=== PATIENT | female | born 1945 | race Caucasian/White ===

== ENCOUNTER 2018-09-12 19:13 | Outpatient (REF) | payer MEDICARE, SELFPAY | END 2018-09-12 19:33 | LOC: LBN 19:13 | PROVIDERS: PCP Internal Medicine Adolescent Medicine; Visit Provider Family Medicine | DX: R82.90 Unspecified abnormal findings in urine (principal); R50.9 Fever, unspecified | CPT/HCPCS: 87077; 87086; 87186 ==

== ENCOUNTER 2018-09-17 00:50 | Outpatient (CLI) | payer MEDICARE, SELFPAY ==
--- NOTE | 2018-09-17 09:45 | DI.US_ITS ---
SYMPTOM/DIAGNOSIS: PYELO, ? SOLITARY KIDNEY, UTI N390, Q60.0 RENAL ULTRASOUND: Routine examination. The left kidney measures 11.2 cm long The right kidney measures 11.1 cm long. No renal mass, calculus or obstruction is seen. There is normal and symmetric blood flow to the kidneys. The pre-void urinary bladder volume is 244 cc. No intraluminal masses are seen. The bladder wall appears intact. Both ureteral jets were visualized. The post void urinary bladder volume was less than 10 cc. IMPRESSION: Normal renal ultrasound.
== END 2018-09-17 01:10 ==
PROVIDERS: PCP Internal Medicine Adolescent Medicine; Visit Provider Family Medicine
DX: N39.0 Urinary tract infection, site not specified (principal); N11.1 Chronic obstructive pyelonephritis
CPT/HCPCS: 76770

== ENCOUNTER 2019-04-03 11:41 | Outpatient (CLI) | payer MEDICARE, SELFPAY ==
--- NOTE | 2019-04-03 11:32 | DI.RAD_ITS ---
SYMPTOM/DIAGNOSIS: F/U RT TENA, ACUTE LT HIP PAIN, ? DJD LT HIP AP PELVIS: The patient is status post right TENA. The prosthesis is in good position. Surrounding bone intact. There may be mild narrowing of the left hip joint. There is minimal periarticular hypertrophic spurring. These findings would be consistent with mild DJD.
== END 2019-04-03 12:01 ==
PROVIDERS: PCP Internal Medicine Adolescent Medicine; Referring Provider Internal Medicine Adolescent Medicine; Visit Provider Orthopaedic Surgery
DX: M25.552 Pain in left hip (principal); Z96.641 Presence of right artificial hip joint; M16.12 Unilateral primary osteoarthritis, left hip; Z47.1 Aftercare following joint replacement surgery
CPT/HCPCS: 99211; 99213; 72170

== ENCOUNTER → 2019-09-29 10:27 | Outpatient (BNVA) | payer MEDICARE, SELFPAY | PROVIDERS: PCP Internal Medicine Adolescent Medicine; Referring Provider Internal Medicine Adolescent Medicine; Visit Provider Student in an Organized Health Care Education/Training Program | DX: M19.012 Primary osteoarthritis, left shoulder (principal); M75.122 Complete rotator cuff tear or rupture of left shoulder, not specified as traumatic; M16.12 Unilateral primary osteoarthritis, left hip | CPT/HCPCS: 99214 ==

== ENCOUNTER 2020-03-05 03:19 | Outpatient (CLI) | payer MEDICARE, SELFPAY ==
[2020-03-05 12:07] LABS: HCT 37.5 % (36.0-46.0); HGB 12.1 g/dL (12.0-15.5); Mean Corp. HGB Concentration 32.3 g/dL (32.0-36.0); Mean Corpuscular Hemoglobin 29.8 pg (27.0-33.0); Mean Corpuscular Volume 92.4 fL (80-95); Mean Platelet Volume 9.7 fL (8.0-11.0); Platelet Count 393 x1000/uL (130-400); RBC 4.06 m/cumm (4.00-5.20); RBC Distribution Width 13.1 % (11.7-14.6); White Blood Cell Count 7.68 k/cumm (4.4-10.8)
[2020-03-05 13:08] LABS: Anion Gap 7.3 mmol/L (3-11); BUN 25 mg/dL (7-18); CO2 28.7 mmol/L (21.0-32.0); CREATININE 1.03 mg/dL (0.55-1.02); Calcium 9.1 mg/dL (8.5-10.1); Chloride 102 mmol/L (98-107); Glucose 134 mg/dL (74-106); Potassium 4.6 mmol/L (3.5-5.1); Sodium 138 mmol/L (136-145)
== END 2020-03-05 03:39 ==
PROVIDERS: PCP Internal Medicine Adolescent Medicine; Visit Provider Student in an Organized Health Care Education/Training Program
DX: M25.552 Pain in left hip (principal); M16.12 Unilateral primary osteoarthritis, left hip; Z01.818 Encounter for other preprocedural examination; Z01.812 Encounter for preprocedural laboratory examination
CPT/HCPCS: 36415; 80048; 85027; 86850; 86900; 86901

== ENCOUNTER 2020-03-05 09:26 | Outpatient (CLI) | payer MEDICARE, SELFPAY ==
[2020-03-06 14:12] LABS: COVID-19 RT-PCR UVMMC Result Negative (Negative)
== END 2020-03-05 09:46 ==
PROVIDERS: PCP Internal Medicine Adolescent Medicine; Visit Provider Student in an Organized Health Care Education/Training Program
DX: Z11.59 Encounter for screening for other viral diseases (principal)
CPT/HCPCS: U0003

== ENCOUNTER 2020-03-05 11:44 | Outpatient (CLI) | payer MEDICARE, SELFPAY ==
--- NOTE | 2020-03-05 08:00 | DI.RAD_ITS ---
EXAM: XR PELVIS AP CLINICAL HISTORY: preop. TECHNIQUE: 2D digital imaging was performed. COMPARISON: CR XR pelvis AP from 04/03/2019 FINDINGS: BONES: No acute fracture is present. No bony destructive lesion is seen. JOINTS: No dislocation present. Stable degenerative changes are seen in the left hip. Stable postsur gical changes of a right total hip replacement are present. SOFT TISSUE: Normal. IMPRESSION: No acute abnormality. DATA REPOSITORY: RADIATION DOSE DELIVERED:
--- NOTE | 2020-03-05 08:15 | DI.RAD_ITS ---
EXAM: XR KNEE LT 4V AP,LAT,BERNARD,PAT CLINICAL HISTORY: left knee pain. TECHNIQUE: 2D digital imaging was performed. COMPARISON: No exams were available for comparison FINDINGS: BONES: No acute fracture is present. No bony destructive lesion is seen. Periarticular spurring is s een in all 3 joint compartments. JOINTS: The knee is normally aligned. Small joint effusion is present. Joint space narrowing is seen involving all 3 joint compartments. There is chondrocalcinosis in the femoral tibial joint. SOFT TISSUE: Normal. IMPRESSION: Moderate degenerative changes of the left knee. DATA REPOSITORY: RADIATION DOSE DELIVERED:
== END 2020-03-05 12:04 ==
PROVIDERS: PCP Internal Medicine Adolescent Medicine; Referring Provider Internal Medicine Adolescent Medicine; Visit Provider Physician Assistant Surgical
DX: M25.562 Pain in left knee (principal); M25.462 Effusion, left knee; M17.12 Unilateral primary osteoarthritis, left knee; M16.12 Unilateral primary osteoarthritis, left hip; Z96.641 Presence of right artificial hip joint; Z01.818 Encounter for other preprocedural examination
CPT/HCPCS: 36415; 80048; 85027; 86850; 86900; 86901; U0003; 72170; 73564

== ENCOUNTER 2020-03-09 06:02 | Observation (INO) | payer MEDICARE, SELFPAY ==
[2020-03-09] VITALS (14 sets, daily range): BP systolic 77–172; BP diastolic 47–84; PULSE 74–95; RESP 13–20; TEMP 36.4–36.7; O2SAT 93–99
--- NOTE | 2020-03-09 06:45 | DI.RAD_ITS ---
EXAM: XR HIP LT IN OR CLINICAL HISTORY: Primary osteoarthritis of left hip. TECHNIQUE: 2D and realtime digital imaging was performed. COMPARISON: CR XR PELVIS AP from 03/05/2020 FINDINGS: Fluoroscopy was provided in the OR for Dr. Braun. Hard copy images show placement of a left hip prosthesis. The alignment appears satisfactory. A previously existing right hip prosthesis is also n oted. FLUORO TIME: 37.2 seconds RADIATION DOSE DELIVERED:
[2020-03-09] MEDS: Acetaminophen 500 MG TAB 1000 MG PO ×2 (06:57→13:07)
[2020-03-09] MEDS: Celecoxib 200 MG CAP 400 MG PO (06:57)
[2020-03-09] MEDS: Lactated Ringers 1,000 ML 80 ML IV ×2 (07:01→10:16)
[2020-03-09] MEDS: ceFAZolin 2 GM/50 ML BAG IVPB (07:40)
[2020-03-09] MEDS: Bupivacaine 0.25% Pres-Free 30 ML VIAL (08:49)
[2020-03-09] MEDS: Ketorolac 30 MG/ML VIAL (08:49)
--- NOTE | 2020-03-09 09:40 | ROE_ITS ---
Date of service: 03/09/20 Time of Service: 09:40 Operative Note Operative Note DATE OF PROCEDURE: 03/09/20 PRE-OP DIAGNOSIS: Left Hip Osteoarthritis POST-OP DIAGNOSIS: same PROCEDURE: Left Anterior Total Hip Arthroplasty SURGEON: Nba Braun DEATH CLAIM CLERK: Jayla Aggarwal ANESTHESIA: spinal ESTIMATED BLOOD LOSS: 100 PATHOLOGY: none sent TOURNIQUET TIME: 0 COMPLICATIONS: None Patient was transported to: PACU Patient's condition: stable Implants: 1. Depuy [place] Acetabular Component, 52 mm 2. Depuy Acetabular Liner, 52 x 36 mm 3. Depuy [place]ail coxa vara femoral Stem, Size 12 4. Depuy [Altrx Ceramic Femoral Head], Size 36+5 mm Indications: I have seen Madina in clinic for symptoms of hip arthritis, confirmed with radiographic findings. Madina has exhausted nonoperative methods and was having significant limitations in daily function and desired better function and less pain. I discussed the technical details of a hip replacement. I explained the risks of the procedure to include, but not limited to, bleeding, infection, pain, stiffness, fracture, damage to nerves and vessels, damage to muscles and tendons, loosening, instability, leg length inequality, need for repeat procedure, blood clot and cardiopulmonary demise. Despite these risks, she elected to proceed. Findings: There was significant signs of arthritis throughout the hip. Large lateral neck osteophytes were encountered as well as loss of cartilage over the superior and medial femoral head. Procedure Description: Madina was greeted in the preoperative holding area where the correct side was identified and marked. The consent was reviewed with the patient and signed. The history and physical was updated. All questions were answered. She was taken back to the operating room. A spinal anesthestic was then administered. The patient was placed into the supine position on the operating room table. The patient was then positioned onto the ARCH table. Both feet were wrapped with [place] cotton wrap along with Coban. The feet were placed in specialized boots for the ARCH table, well seated within the boot and secured. SCDs were applied. The patient was then slid down onto a peroneal post and the nonoperative leg was secured in a leg ochoa attached to the table. The operative side was placed into the ARCH table attachment and bed height and positioning was secured. A preoperative AP pelvis was obtained to serve as a reference for determining leg lengths. Prophylactic antibiotics in the form of cefazolin were administered. 1g of Tranxemic Acid was given intravenously within 30 minutes of incision. The left leg was then prepped with Chloraprep and draped in a standard fashion. A second prep with Chloraprep was performed prior to placement of a shower-curtain type drape with Iodine impregnated skin protection. A timeout to confirm correct identity, side and site, procedure, allergies, anesthesia, and medical concerns was performed. An obliquely oriented incision was made starting lateral to the ASIS and running distal over the Tensor Fascia Trista (TFL) muscle belly toward the fibular head, approximately 10cm. The skin and soft tissue was dissected sharply, through Chicho?s fascia, and to the fascia of the TFL. With the fascia and superior border of the IT band identified, the fascia was incised with a new knife just above any perforators from the IT band. The TFL muscle belly was bluntly dissected away from the fascia and moved laterally. The fat between TFL and rectus was identified to ensure the dissection was not within the TFL. Blunt dissection created space between abductors and the capsule and retractor was placed over the lateral femoral neck. The fibers of the rectus femoris tendon were identified and these were freed from the anterior capsule. A second cobra retractor was placed around the medial femoral neck. The TFL was further retracted laterally to show the deep fascia. Careful dissection through this layer identified three main crossing vessels of the lateral femoral circumflex. These were cauterized in multiple locations and then cut without any noticeable bleeding. The TFL was further released bluntly from the deep fascia to expose anterior hip capsule and fat the Alfred orthopaedic retractor was then placed beneath the TFL and against sartorius and medial soft tissues to protect and retract the soft tissues. A T-capsulotomy was then performed starting at the superior lateral acetabulum and moving distally to the intertrochanteric ridge. These capsular flaps were tagged with a No. 1 Ethibond and elevated from within. The capsular flaps were released to the shoulder of the lateral neck and to the lesser trochanter to give excellent visualization of the proximal femur. A neck osteotomy was performed using an oscillating saw based on preoperative templates. This cut started in the shoulder and of the lateral neck and exited medially. The saw was at all times directed medially to avoid injury to the greater trochanter. 6cm of traction was applied to the leg and the osteotomy opened. The femoral head was removed with a corkscrew, making sure to protect the TFL on its exit. This was measured on the back table to determing the starting reamer size. Portions of the rectus obscuring visualization were minimally elevated off the superior acetabulum. An anterior retractor was placed over the anterior wall between capsule and labrum and attached to the Gripper retraction system. A posterior retractor was placed similarly. This provided excellent visualization. The contents of the cotyloid fossa were removed with electrocautery and the labrum was removed with a knife. There was significant chondromalacia of the superior acetabulum. The femoral head had complete loss of cartilage over the medial aspect and part of the superior aspect of the femoral head. Acetabular reaming began with a 48 mm reamer. This first reaming was directed anterior to posterior and medial to get down to the true floor. This was inspected and reamed until the true floor was reached. The anterior retractor was then released and entry and exit was provided by traction on the capsular flaps. I then reamed sequentially up to a 52 mm reamer where good fit was obtained. The larger reamers were oriented based on anatomical reference of the anterior and lateral lindsey to ensure proper abduction and anteversion. Positioning and size was confirmed with the fluoroscopy. A 52 mm Depuy [place] acetabular component was selected. The deep tissues were irrigated. The acetabular component was then impacted in a position of about 40-45 degrees of abduction and 15-20 degrees of anteversion, using the patient?s anatomy as the ultimate landmark. Fluoroscopy was used to confirm this. There was excellent forest fire prevention specialist of the acetabular component and the inserting handle was removed. The acetabular liner, Depuy 52 x 36 mm polyethylene liner, was inserted and lined up with the tines of the acetabular component. There was no soft tissue interposition. The liner was then impacted into position and confirmed to be well-seated. A portion of the lesley-articular cocktail was then injected around the acetabulum into the capsule and periosteum. This cocktail consisted of 50cc of 0.25% Bupivicaine and 20cc of Exparel, expanded to a total of 120cc. Traction was released from the femur. The leg was rotated to 120 degrees. Any remaining medial capsule was released until the lesser trochanter was easily palpable. A Bolton retractor was placed medially. The lateral capsule was f urther released into the shoulder to allow access to the greater trochanter. A [place] retractor was placed over the greater trochanter which allowed the trochanter to flip in front of the capsule for excellent exposure. The leg was brought down into maximal extension and 20 degrees of adduction while ensuring there was no impingement on the acetabulum. Any remnant capsule within the trochanter was released. Piriformis and obturator externis were identified and protected. There was excellent access to the proximal femur. The lateral neck remnant was removed with a rongeur. A blunt canal probe was used to identify the canal and trajectory for later broaching. A box osteotome initiated the broach course. A small curved rasp and a curved curette were used to work laterally. Broaching then began with a size 8 Corail broach. This was inserted manually around the trochanter and into the canal before mallet blows. The broach was seated to a few millimeters below the cut level based on the neck cut and the preoperative template. Sequential broaching was continued with the Nextdoorse pneumatic broaching device until a tight fit was obtained with good rotational control of the femur. A trial standard neck was inserted along with a +5 trial head. The leg was brought out of extension and adduction and then reduced with traction and internal rotation. The leg was stable anteriorly in a position of 30 degrees of extension and 90 degrees of external rotation. Fluoroscopy was used to ensure there was no fracture and the stem was seated well. Leg lengths were checked with an AP pelvis and pelvic reference points. IPNetVoice navigation system was used to confirm appropriate positioning and leg length and offset. Compared to the template my neck cut was still slightly high. Additionally, I was lacking at least 3 to 4 mm of offset. Therefore, based on the joint point navigation system and observations, I switched to a coxa vara stem to lose some leg length but gain some offset. Once content with the desired offset and leg lengths, the leg was brought back into extension, external rotation and adduction. The periosteum and surrounding tissue was injected with remaining portion of the lesley-articular cocktail. The proximal femur was irrigated as well as the deep tissues. The [place] Cor[place] coxa vara stem, size 12, was then manually inserted into the proximal femur making sure to control rotation. It was then malleted into position with light blows, giving breaks to allow bone expansion and decrease risk of fracture. The selected Depuy Altrx Ceramic Head, size 36+5mm, was then placed onto the clean and dry trunnion and secured with impaction onto the tapered fit. The leg was brought back out of extension and adduction and reduced with traction and internal rotation. Stability was confirmed with no shuck at 90 degrees of external rotation and 30 degrees of extension. No impingement through range of motion arc. Final x-ray images were obtained with fluoroscopy to confirm adequate positioning and no intraoperative fracture. The deep tissues were thoroughly irrigated with Irrisept chlorhexadine solution. The second dose of TXA 1g was administered intravenously. The capsule was then reapproximated with the previously placed Ethibond sutures. The TFL fascia was finally closed with a No. 2 Stratafix, barbed suture. Deep tissues were then reapproximated with 0 Vicryl and a running 2-0 Vicryl. The skin was closed with a running 4-0 Monocryl in a subcuticular fashion. This was reinforced with skin glue. A Mepilex silver dressing was applied. At the end of the case, all counts were correct. Madina was transferred to the hospital bed without difficulty and suffering no apparent complication. She has a good prognosis. Physical therapy will start today and without restrictions, weight-bearing as tolerated. Aspirin 81mg BID will be used for DVT prophylaxis.
[2020-03-09] MEDS: oxyCODONE 5 MG TAB PO (10:02)
--- NOTE | 2020-03-09 10:15 | DSE_ITS ---
Date of service: 03/09/20 Time of Service: 11:49 DS: Diagnosis Discharge Diagnosis (1) Primary osteoarthritis of left hip: Status: Acute Discharge Plan Disposition Patient Disposition: HOME Condition: Good Discharge Details Reason For Visit: (L) DJD HIP Admit Date/Time: 03/09/20 06:02 Admit Provider: Nba Braun Attending Provider: Nba Braun Primary Care Provider: Adela Carbajal Hospital Course Hospital Course: Patient was admitted to the medical/surgical floor following the procedure. The surgery was tolerated well without any notable medical, surgical, or anesthetic complications. Mobilization began postoperatively. After surgery she was voiding spontaneously. Vitals were stable. Physical therapy worked with the patient and was cleared for discharge home. No acute medical issues. Pain was controlled on oral regimen. Home Meds and New Rx's Prescriptions: New celecoxib 200 mg capsule 200 mg PO BID PRN (Reason: pain) Qty: 60 RF: 1 aspirin 81 mg tablet,delayed release (DR/EC) 81 mg PO BID Qty: 60 RF: 0 acetaminophen 500 mg tablet 1,000 mg PO Q8H PRN (Reason: pain) Qty: 90 RF: 3 pantoprazole 40 mg tablet,delayed release (DR/EC) 40 mg PO DAILY Qty: 30 RF: 0 oxycodone 5 mg tablet 5 mg PO Q6H PRN PRNQty: 12 RF: 0 Continued omega 2-uyk-oyq-fish oil [Fish Oil] 1,000 mg (120 mg-180 mg) capsule 2 cap PO DAILY RF: 0 calcium carbonate 500 mg calcium (1,250 mg) tablet 500 mg PO DAILY RF: 0 lysine HCl 1,000 mg tablet 1,000 mg PO BID RF: 0 calcium cit mal-vit D2-mag ox 200-200-25 mg-unit-mg tablet PO RF: 0 coenzyme Q10 [Co Q-10] 200 mg capsule 200 mg PO DAILY RF: 0 turmeric root extract 1,053 mg tablet 1,076 mg PO DAILY RF: 0 Flovent HFA 110 mcg/actuation Hfa Aerosol Inhaler 1 puff INHALATION BID RF: 0 escitalopram oxalate [Lexapro] 20 mg Tablet 20 mg PO QHS RF: 0 bupropion HCl [Wellbutrin XL] 300 mg Tablet Extended Release 24 Hr 300 mg PO QHS RF: 0 bupropion HCl [Wellbutrin XL] 150 mg Tablet Extended Release 24 Hr 150 mg PO QHS RF: 0 [place] Cbd 10 drp PO HS RF: 0 [place] Hortencia tablet 1 tab PO PRN PRNRF: 0 Discontinued acetaminophen [Tylenol Extra Strength] 500 mg Tablet 500 mg PO QHS PRNRF: 0 ibuprofen 600 mg Tablet 600 mg PO QHS PRNRF: 0 Discharge Instructions Additional Instructions: Dr. Braun's Total Hip Discharge Instructions Activity: The most important activity is to walk. You should try to take short walks a few times a day. You have no restrictions on movement or positioning, but do not try to force what you do. You will find some stiffness and weakness with hip flexion (lifting your knee). Do not try to strengthen this too early, continue to practice walking and stairs and this will come. - Outpatient physical therapy can be helpful to help return you to a normal gait and improve your flexibility and strength. This can start around 2 weeks. For most patients, it?s not necessary. Usually this is determined at the time of discharge or at the first post-operative visit. - You should wear the MOIRA hose on both legs for 2 weeks. You may remove those at night. These prevent blood pooling and swelling. Dressing: Keep the surgical dressing in place for at least one week, although it may stay in place untill follow-up. It may get wet after 3 days but avoid soaking the dressing. If it gets wet, just lightly pat dry. Most people prefer to cover the dressing with some ClingWrap, Saran Wrap, to keep it dry. After the first week it may be removed if desired and then replaced with light gauze and tape or nothing. It is important to always keep some gauze or the dressing between skin folds, especially when you are sitting, so the incision is not folded over on itself at the belly fold. Medications: - You should take Tylenol and an anti-inflammatory Celebrex as your primary pain control medications - You have been prescribed a stronger pain medication Oxycodone for breakthrough pain, take as needed as prescribed. - You have also been prescribed a stomach acid reduction agent Pantoprozole to help reduce stomach acid and reflux. - You will be taking Aspirin 81mg twice a day for DVT prevention unless instructed otherwise. - If you have constipation you should take Colace or Miralax (both [id number]). It takes most people 3-4 days to have a bowel movement. Follow-up: 2 weeks. If you have any acute concerns or questions, please do not hesitate to contact the office at [phone]. You may contact Dr. Braun with any questions after hours through the hospital at [phone] or on his cell phone at [phone]. Referrals: Nba Braun MD [ [facility] STAFF PHYSICIAN] - Activity:: Activity as Tolerated Equipment/Supplies:: Walker Diet:: As Tolerated Discharge Orders Discharge Orders: Discharge Order (Routine); Ordered 03/09/20 Ordered By: Nba Braun DS: Summary Status at Discharge Functional status at discharge: uses cane/walker Overall status at discharge: patient is progressing back to baseline Mental Status: mental status grossly normal Speech and Movement: speech and movement normal Mood: congruent mood Affect: normal affect Exam Psych Mental Status: mental status grossly normal Speech and Movement: speech and movement normal Mood: congruent mood Affect: normal affect DS: Data Vitals/I&O Vitals and I&O: Vital Signs Temperature 36.4 C L 03/09/20 10:04 Pulse 77 03/09/20 10:04 Pulse Rhythm Regular 03/09/20 06:35 Respiratory Rate 19 03/09/20 10:04 Respiratory Effort 03/09/20 06:35 Respiratory Depth Normal 03/09/20 06:35 Respiratory Pattern Normal 03/09/20 06:35 Blood Pressure 172/77 H 03/09/20 10:04 Pulse Oximetry 99 03/09/20 10:04 Respiratory End-tidal CO2 38 03/09/20 10:04 Oxygen Delivery Method Room Air 03/09/20 10:04 Oxygen Flow Rate 0 03/09/20 10:04 Pain Level 7 03/09/20 10:04 Intake & Output 03/08/20 03/08/20 03/09/20 11:59 23:59 11:59 Intake Total 1400 / 1400 Output Total 100 / 100 Balance 1300 / 1300 Weight 67.4 kg Intake: IV 970 / 970 Oral 430 / 430 Output: Estimated Blood Loss 100 / 100 Other: Emesis Description None [facility] Medical History Depression (Chronic) History of wrist fracture (Acute) L wrist, hardware removed Surgical History History of arthroscopic knee surgery (Chronic) L Knee History of bowel resection (Acute) History of cataract surgery (Chronic) History of colonoscopy (Chronic) History of hip replacement (Chronic) R Hip 02/2011 Family History Mother , No pertinent PMHx No problems noted. Father , No pertinent PMHx No problems noted. Brother Cancer prostate CA in remission Social History Smoking/Tobacco Use Status: Former Tobacco Use Current gender identity: female Female Reproductive History Menstrual Menopause type: natural
--- NOTE | 2020-03-09 11:01 | NUR.NOTE ---
Nursing Note: 1045 Arrived from PACU via bed to room 230. Report from Lm Albarran RN. VSS. A&Ox3. See Shift assessment.
[2020-03-09] MEDS: Pantoprazole 40 MG TABCR PO (11:14)
[2020-03-09] MEDS: Normal Saline Flush 10 ML SYR IV (11:16)
--- NOTE | 2020-03-09 11:23 | PT.INIE ---
Date of service: 03/09/20 Time of Service: 11:23 PT Notes Visit Reasons: (L) DJD HIP Physical Therapy Inpatient Initial Evaluation Date: 03/09/2020 Referring Doctor: Nba Braun MD PT Orders: PT CONSULT: Status post Ortho surgery. Status post anterior L TENA. Expected same-day discharge Precautions: Fall. Standard. WBAT on left LE. Patient Profile/Admitting Diagnosis: Madina is a 74-year-old female with primary unilateral osteoarthritis of the left hip and is status post left anterior total hip arthroplasty on postoperative day 0. PMHX: Medical History Depression (Chronic) History of wrist fracture (Acute) L wrist, hardware removed Surgical History History of arthroscopic knee surgery (Chronic) L Knee History of bowel resection (Acute) History of cataract surgery (Chronic) History of colonoscopy (Chronic) History of hip replacement (Chronic) R Hip 02/2011 Social History/Home Situation: Patient lives with in a private home with 1 step to enter and another flight of steps onto the second floor of the house where the bedroom is. Patient states that she can stay on the main floor if she needs to when she goes home. She is independent with all aspects of ADLs without the need for an assistive ambulatory device nor adaptive equipment prior to surgery. Equipment Owned/DME: None Subjective: Patient complained about being lightheaded upon sitting up on the edge of the bed and requested to lie back down; she did agree to be seen in half an hour. Upon return of this PT patient was able to tolerate and complete mobility assessment with no issues. She hopes to go home today with a front wheeled walker. Objective: General Observation: Bilateral TEDS on. Anti-thromboembolic pumps on bilateral legs. IV in the right UE. Mental Status: Alert and oriented x4 Pain: 0/10 Vital Signs: Blood pressure dipped out a little bit when patient tried to set up in bed the first time but was okay when measured little later for mobility assessment. ROM: Right Upper Extremity: Shoulder Flexion WFL. Shoulder abduction WFL. Elbow flexion WFL. Wrist flexion WFL. Opening and closing of hand WFL. Left Upper Extremity: Shoulder Flexion WFL. Shoulder abduction WFL. Elbow flexion WFL. Wrist flexion WFL. Opening and closing of hand WFL. Right Lower Extremity: Hip flexion WFL. Hip abduction WFL. Knee flexion WFL. Ankle dorsiflexion WFL. Ankle plantarflexion WFL. Left Lower Extremity: Hip flexion WFL. Hip abduction WFL. Knee flexion WFL. Ankle dorsiflexion WFL. Ankle plantarflexion WFL. Strength: Right Upper Extremity: Shoulder flexors 5/5. Shoulder abductors 5/5. Elbow flexors 5/5. Elbow extensors 5/5. Naphthalene Operator Helper strong. Left Upper Extremity: Shoulder flexors 5/5. Shoulder abductors 5/5. Elbow flexors 5/5. Elbow extensors 5/5. Naphthalene Operator Helper strong. Right Lower Extremity: Hip flexors 5/5. Hip abductors 5/5. Knee flexors 5/5. Knee extensors 5/5. Ankle dorsiflexors 5/5. Ankle plantarflexors 5/5. Left Lower Extremity:Hip flexors 4/5. Hip abductors 4/5. Knee flexors 5/5. Knee extensors 4/5. Ankle dorsiflexors 5/5. Ankle plantarflexors 5/5. Sensation: Intact as to pain and pressure on bilateral lower extremities. Bed Mobility/Transfers: Rolling modified independent using BUE for support Supine to sit modified independent using BUE for support Sit to supine modified independent using BUE for support Sit to stand contact-guard assist using front wheeled walker Stand to sit contact-guard assist using front wheeled walker Bed to chair contact-guard assist using front wheeled walker Chair to bed contact-guard assist using front wheeled walker Gait: Patient tolerated level surface ambulation 260 feet using a front wheeled walker with standby assist and IV pole management of PT and wheelchair follow of nurse Ibrahim. Reciprocal swing through gait pattern observed. No report of increased pain on the left hip. No LOB seen. No report of lightheadedness. Balance: Static Sitting: Normal Dynamic Sitting: Normal Static Standing: Fair Dynamic Standing: Fair Special Tests: Mobility Limitations Standardized Measure [facility] AM-PAC 6 clicks Basic Mobility Inpatient Short Form: Raw Score: 21 CMS Score: 29% deficit Informed Consent/Education: Patient instructed in purpose of PT consult and plan of care. Assessment: Patient demonstrates need for an assistive device for all mobility ADL performance to reduce fall risk, decreased cynthia, increased risk for falls, and functional mobility decline resulting from postoperative status. Madina is a 74-year-old female with primary unilateral osteoarthritis of the left hip and is status post left anterior total hip arthroplasty on postoperative day 0. Patient presents with clinical signs and symptoms consistent with current/admitting diagnoses that have resulted to mobility limitations, gait instability, generalized weakness, and impairment of motor control as demonstrated by the following impairment level findings: 1. Decreased strength to B LE major muscle groups 2. Impaired standing balance 3. Impaired activity tolerance Impairments are contributing to the following functional limitations: 1. Inability to safely ambulate without assistive device and physical assistance 2. Increase completion time for mobility ADL performance 3. Increased fall risk 4. Inability to negotiate steps alone safely Patient is assessed as a 40609 moderate complexity based on the following: History: 74-year-old female with impairment level findings, functional limitations, and past medical history as listed above Examination: Demonstrable impairment in strength, balance, and mobility level with underlying impairments and functional limitations as documented above Presentation: Evolving Decision Makin moderate complexity Goals: Patient has been cleared by orthopedic surgeon to go home today and will be seen this afternoon for stair negotiation education and training. Plan of Care/Treatment Plan: Patient has been cleared by orthopedic surgeon to go home today and will be seen this afternoon for stair negotiation education and training. DISCHARGE RECOMMENDATIONS: Home when medically cleared. Patient will benefit from the use of a front wheeled walker to maximize independence and home. Follow-up with orthopedic surgeon in a week or two as recommended. TREATMENT CODE/TIME: 42207 x 32 minutes beginning at 11:23 AM. Thank you very much for this referral. Florina Lara PT, DPT, CLT [facility] [place], [place]
[2020-03-09] MEDS: ceFAZolin 1 GM/50 ML BAG IVPB (11:45)
--- NOTE | 2020-03-09 14:48 | PT.INTREAT ---
Date of service: 03/09/20 Time of Service: 14:48 PT Notes Visit Reasons: (L) DJD HIP Inpatient Physical Therapy Treatment Note [facility] Date: 03/09/20 PRECAUTIONS: WBAT L SUBJECTIVE: Madina is agreeable to participating in PT. She is hopeful that she will be discharged home this evening. Madina reports that she is feeling good. OBJECTIVE: At home mobility/exercise frequency and type was discussed in depth with patient and Dr. Braun, with nursing present. PAIN: Patient rates her L hip pain as a 2/10. BED MOBILITY/TRANSFERS Sit-stand: I Stand-sit: I GAIT Assistive Device: FWW Weight bearing: WBAT on L Assist: I Distance: 260' THEREX: Patient completed several B LE strengthening exercises, in a standing position, including: Heel raises x10 Hip flexion x10 Hip abduction x10 Mini squats x10 STAIRS: Up/down 2x6 and 3x4 using 1 rail/SPC and a step-to pattern with supervision. ASSESSMENT: Patient tolerated session well without complaint. She was able to tolerate a progression in gait distance and was able to demonstrate independence with gait with FWW support, and with transfers. PLAN: As per primary PT TREATMENT CODE/TIME: 40 minutes; 97116 x2, 51414
== END 2020-03-09 15:25 | disposition home or self-care (01) ==
LOC: PDS 09:32 → MS 09:32
PROVIDERS: Admitting Provider Student in an Organized Health Care Education/Training Program; PCP Internal Medicine Adolescent Medicine; Visit Provider Student in an Organized Health Care Education/Training Program
PROC: 0SRB04A Replacement of Left Hip Joint with Ceramic on Polyethylene Synthetic Substitute, Uncemented, Open Approach (ICD-10-PCS; CPT 27130; principal; 2020-03-09 07:30)
DX: M16.12 Unilateral primary osteoarthritis, left hip (principal); M25.562 Pain in left knee; Z96.642 Presence of left artificial hip joint
CPT/HCPCS: 27130; C1776; 97110; 97162; 97530; NC; 73501; G0378; J0690; J1100; J1885; J2001; J2405; J3490

== ENCOUNTER 2020-03-25 15:56 | Outpatient (CLI) | payer MEDICARE, SELFPAY ==
--- NOTE | 2020-03-25 09:45 | DI.RAD_ITS ---
EXAM: XR HIP LT COMPLETE AP PELVIS CLINICAL HISTORY: 1ST POST OP. TECHNIQUE: 2D digital imaging was performed. COMPARISON: CR XR PELVIS AP from 03/05/2020 XR HIP LT IN OR from 03/09/2020 XR HIP LT IN OR from 03/09/2020 FINDINGS: There are stable postsurgical changes of a left total hip replacement. A triangular fragment arising from the greater trochanter is medially displaced. The bones are normally mineralized. There is an old right total hip replacement. The soft tissues are unremarkable. IMPRESSION: Left THR. DATA REPOSITORY: RADIATION DOSE DELIVERED:
== END 2020-03-25 16:16 ==
PROVIDERS: PCP Internal Medicine Adolescent Medicine; Referring Provider Internal Medicine Adolescent Medicine; Visit Provider Student in an Organized Health Care Education/Training Program
DX: Z96.642 Presence of left artificial hip joint (principal); Z47.1 Aftercare following joint replacement surgery
CPT/HCPCS: 73502

== ENCOUNTER → 2020-04-22 09:19 | Outpatient (BNVA) | payer MEDICARE, SELFPAY | PROVIDERS: PCP Internal Medicine Adolescent Medicine; Referring Provider Internal Medicine Adolescent Medicine; Visit Provider Student in an Organized Health Care Education/Training Program | DX: Z96.642 Presence of left artificial hip joint (principal); Z47.1 Aftercare following joint replacement surgery ==

== ENCOUNTER 2021-03-11 10:41 | Outpatient (CLI) | payer MEDICARE, SELFPAY ==
--- NOTE | 2021-03-11 08:00 | DI.RAD_ITS ---
Exam(s) XR HIP LT AP LAT ONLY EXAM: XR HIP LT AP LAT ONLY CLINICAL HISTORY: annual f/u L TENA TECHNIQUE: COMPARISON: CR XR HIP LT COMPLETE AP PELVIS from 03/25/2020 FINDINGS: Two views were obtained. There is a total hip joint replacement position on the left. The component s appear well seated. A free bony fragment is again noted projected superior to the femoral prosthet ic neck. No change in appearance comparison with examination of March 2020. IMPRESSION: RADIATION DOSE DELIVERED: Total DLP
== END 2021-03-11 10:42 | disposition home or self-care (01) ==
LOC: DIORS 10:41
PROVIDERS: PCP Internal Medicine Adolescent Medicine; Visit Provider Student in an Organized Health Care Education/Training Program
DX: Z47.1 Aftercare following joint replacement surgery (principal); Z96.642 Presence of left artificial hip joint
CPT/HCPCS: 99213; 73502

== ENCOUNTER 2022-01-15 13:40 | Emergency (ER) | payer MEDICARE, SELFPAY ==
[2022-01-15 13:50] VITALS: BP 136/50; PULSE 84; RESP 16; TEMP 36.9; O2SAT 93
--- NOTE | 2022-01-15 13:57 | ED.GENADUL_ITS ---
Discharge Plan Disposition Patient Disposition: HOME Condition: Stable Discharge Details Clinical Impression: COVID-19, Encounter for laboratory test, Medication administered Primary Care Provider: Adela Carbajal ED Provider: Lynn Caban Home Meds and New Rx's Prescriptions: Continued omega 4-utv-ksb-fish oil [Fish Oil] 1,000 mg (120 mg-180 mg) capsule 2 cap PO DAILY 0RF calcium cit mal-vit D2-mag ox 200-200-25 mg-unit-mg tablet PO 0RF Label Comments: PT STATES SHE TAKES 1 TAB BID coenzyme Q10 [Co Q-10] 200 mg capsule 200 mg PO DAILY 0RF turmeric root extract 1,053 mg tablet 1,076 mg PO DAILY 0RF lysine HCl 1,000 mg tablet 1,000 mg PO DAILY 0RF omeprazole 20 mg tablet,delayed release (DR/EC) 20 mg PO DAILY 0RF Flovent HFA 110 mcg/actuation Hfa Aerosol Inhaler 1 puff INHALATION BID 0RF escitalopram oxalate [Lexapro] 20 mg Tablet 20 mg PO QHS 0RF bupropion HCl [Wellbutrin XL] 300 mg Tablet Extended Release 24 Hr 300 mg PO QHS 0RF Label Comments: takes with 150 mg to equal 450 mg bupropion HCl [Wellbutrin XL] 150 mg Tablet Extended Release 24 Hr 150 mg PO QHS 0RF Label Comments: takes with 300 mg to equal 450 mg American Hortencia tablet 1 tab PO PRN PRN0RF acetaminophen 500 mg tablet 1,000 mg PO Q8H PRN (Reason: pain) Qty: 90 3RF Discharge Instructions Instructions: COVID-19 (Coronavirus Disease 2019) (ED) Additional Instructions: Drink plenty of fluids and get plenty of rest. Alternate tylenol and motrin as needed and directed for pain. Take the Paxlovid as directed until finished. Follow-up with your primary care doctor in 1 week. Return to the emergency department with any worsening or new concerning symptoms. Discharge Data Discharge Date/Time-TO BE ENTERED AT DEPARTURE: 01/15/22 15:30 Discharge Physician: Lynn Caban Medical Decision Making 76-year-old female sent by her PCP Dr. Quan for a BMP with plan to start Paxlovid after she had a positive Covid test at home today. She admits to sore throat, headache, feeling feverish and anterior chest pain. Her vitals are within normal limits. Her oxygen saturation is 96% on room air. She appears comfortable and nontoxic, speaking in full sentences. She declines any work-up for her symptoms and is only here for the metabolic panel start Paxlovid. Considering her age and complaint of chest pain, an EKG was recommended and was performed which noted a rate of 89, sinus, normal axis, no STEMI and nondiagnostic. Her BUN is 15, creatinine 1, GFR 53. Discussed with pharmacy and they will adjust dose of Paxlovid and dispense this medication to provide to patient in the ED. Patient was advised that Paxlovid can affect absorption of flovent and wellbutrin and to discuss these medications with her PCP. Usual and customary return precautions given prior to discharge. Medical Records Medical records reviewed: Yes I reviewed the patient's medical records. ECG Data Attestation: I personally reviewed and interpreted this ECG (s) as follows: Interpretation: Rate of 89, sinus, normal axis, no STEMI. HPI General Mode of arrival: ambulatory . Date/Time Provider Initiated Documentation: 01/15/22 13:40 . Limitations to Documentation: no limitations . Information obtained by: patient . HPI Narrative: Patient is a 76-year-old female who presents after sent by Dr. Quan for a BMP with plan to start Paxlovid for recent positive Covid test. Patient states she is fully vaccinated for COVID including a booster and was recently exposed potentially at a where she was talking closely with people and not wearing a mask. She states 2 days ago she developed sore throat headache, feeling feverish and chills. She states night she developed anterior chest pain but denies any significant shortness of breath. She states she did not want a work-up for any of her symptoms and is mainly to check her renal function before starting Paxlovid. She states she had a negative Covid test yesterday but did have a positive at-home COVID test today. Related Data Home Medications Medication Instructions Recorded Confirmed American Hortencia 1 tab PO PRN PRN 03/03/20 01/15/22 bupropion HCl 150 mg 24 hr tablet, 150 mg PO QHS 03/03/20 01/15/22 extended release (Wellbutrin XL) bupropion HCl 300 mg 24 hr tablet, 300 mg PO QHS 03/03/20 01/15/22 extended release (Wellbutrin XL) escitalopram oxalate 20 mg tablet 20 mg PO QHS 03/03/20 01/15/22 (Lexapro) fluticasone propionate 110 1 puff INHALATION BID 03/03/20 01/15/22 mcg/actuation HFA aerosol inhaler (Flovent HFA) calcium citrate mal.-vit tab PO 03/05/20 03/11/21 D2-magnesium ox 200 mg-200 unit-25 mg tablet coenzyme Q10 200 mg capsule (Co 200 mg PO DAILY 03/05/20 01/15/22 Q-10) omega 6-pfn-cjy-fish oil 1,000 mg 2 cap PO DAILY cap 03/05/20 01/15/22 (120 mg-180 mg) capsule (Fish Oil) turmeric root extract 1,053 mg 1,076 mg PO DAILY 03/05/20 01/15/22 tablet acetaminophen 500 mg tablet 1,000 mg PO Q8H PRN #90 tab 03/09/20 01/15/22 lysine HCl 1,000 mg tablet 1,000 mg PO DAILY tab 03/11/21 01/15/22 omeprazole 20 mg tablet,delayed 20 mg PO DAILY 03/11/21 01/15/22 release Previous Rx's Medication Instructions Recorded acetaminophen 500 mg tablet 1,000 mg PO Q8H PRN #90 tab 03/09/20 Allergies Allergy/AdvReac Type Severity Reaction Status Date / Time polyethylene glycol 3350 AdvReac Intermediate Skin Rash Verified 01/15/22 13:54 [From [facility]] General Stated Complaint: RespSymp WYATT: 4 Review of Systems All systems reviewed & are unremarkable except as noted in HPI and below Constitutional Constitutional: Reports as per HPI, Denies chills and Denies fever(s) Eyes Eyes: Denies blurry vision ENT Ears, Nose, Mouth, and Throat: Denies dizziness, Reports sore throat and Denies throat swelling Cardiovascular Cardiovascular: Denies chest pain and Denies dyspnea Respiratory Respiratory: Denies cough and Denies dyspnea Gastrointestinal Gastrointestinal: Denies abdominal pain, Denies diarrhea and Denies vomiting Genitourinary Genitourinary: Denies hematuria and Denies dysuria Musculoskeletal Musculoskeletal: Denies back pain and Denies numbness Integumentary/Breasts Skin/Breast: Denies lesions and Denies rash Neurologic Neurologic: Denies dizziness, Denies localized weakness and Denies numbness Allergic/Immunologic Allergic/Immunologic: Denies throat swelling PFSH All Active Problems (Updated 01/19/22 @ 08:47 by Lynn Caban DO) COVID-19 (Acute) Encounter for laboratory test (Acute) Medication administered (Acute) Sensorineural hearing loss, bilateral (Acute 11/25/13) Status post total hip replacement, left (Acute 03/09/20) Osteoarthritis of left shoulder region (Acute) Left rotator cuff tear (Acute) Primary osteoarthritis of left hip (Acute) Medical History Depression History of wrist fracture L wrist, hardware removed Sensorineural hearing loss, bilateral (11/25/13) Surgical History History of arthroscopic knee surgery L Knee History of bowel resection History of cataract surgery History of colonoscopy History of hip replacement R Hip 02/2011 Status post total hip replacement, left (03/09/20) Family History Mother , No pertinent PMHx No problems noted. Father , No pertinent PMHx No problems noted. Brother Cancer prostate CA in remission Social History Smoking/Tobacco Use Status: Former Tobacco Use Smoking risk assessment performed?: Yes Alcohol Intake: never Substance use type: does not use Current gender identity: female Female Reproductive History Menstrual Menopause type: natural Exam Const General: cooperative and no acute distress Orientation: alert, awake and oriented x3 HENMT Head: normal to inspection Ears: hearing grossly normal bilaterally, external ears normal and TM's normal bilaterally General nose exam: external nose normal Mouth: oral mucosae normal Throat: posterior oropharynx normal Eyes General: appearance normal, both eyes and all related structures Neck Neck: normal visual inspection Resp Effort & Inspection: normal respiratory effort and able to speak in complete sentences Auscultation: clear to auscultation bilaterally Cardio Rate: regular rate Skin General skin exam: no rashes or lesions noted Neuro General: patient alert, patient awake and patient oriented x3 Motor: muscle tone normal throughout Extrem General: normal to inspection and full ROM Psych Appearance: grossly normal Affect: normal affect Course Vital Signs Vital signs: Vital Signs Temperature 98.4 F 01/15/22 13:50 Pulse 84 01/15/22 13:50 Respiratory Rate 16 01/15/22 13:50 Blood Pressure 136/50 L 01/15/22 13:50 Pulse Oximetry 93 01/15/22 13:50 Temperature 98.4 F 01/15/22 13:50 Temperature Source Skin 01/15/22 13:50 Pulse 84 01/15/22 13:50 Respiratory Rate 16 01/15/22 13:50 Respiratory Effort 01/15/22 13:50 Blood Pressure 136/50 L 01/15/22 13:50 Blood Pressure Position Sitting 01/15/22 13:50 Pulse Oximetry 93 01/15/22 13:50 Oxygen Delivery Method Room Air 01/15/22 13:50 Oxygen Flow Rate 0 01/15/22 13:50 Pain Level 6 01/15/22 13:50 Comment 01/15/22 13:50
[2022-01-15 14:22] LABS: BUN 15 mg/dL (7-18); Chloride 99 mmol/L (98-107); Estimated GFR 53.62 (mL/min/1.73m2); Glucose 97 mg/dL (74-106); Potassium 4.5 mmol/L (3.5-5.1); Sodium 133 mmol/L (136-145)
--- NOTE | 2022-01-15 14:30 | RT.EKG_ITS ---
APPROVED REPORT Exam: Resting ECG Reason for Exam: chest pain Patient Location: E HR:89 bpm ECG Measurements Heart Rate 89 AXIS MI 165 P 6 QRSd 91 QRS 0 QT 356 T 59 QTc 433 Conclusion Sinus rhythm...normal P axis, V-rate 60- 99. Sinus. Normal axis. No STEMI. I have reviewed and interpreted ECG and agree with software generated interpretation.
[2022-01-15 14:33] LABS: Calcium 8.6 mg/dL (8.5-10.1)
== END 2022-01-15 15:30 | disposition home or self-care (01) ==
PROVIDERS: Emergency Provider Physician Assistant; PCP Internal Medicine Adolescent Medicine
DX: U07.1 COVID-19 (principal); R07.9 Chest pain, unspecified; R51.9 Headache, unspecified
CPT/HCPCS: 36415; 80048; 93005; 99283; 93010

== ENCOUNTER 2022-04-26 09:58 | Day surgery (SDC) | payer MEDICARE, SELFPAY ==
[2022-04-26] VITALS (12 sets, daily range): BP systolic 99–144; BP diastolic 43–108; PULSE 69–90; RESP 15–26; TEMP 35.9–36.7; O2SAT 93–99; BMI 24.3
--- NOTE | 2022-04-26 09:20 | HPE_ITS ---
Assessment and Plan Assessment and plan (1) Closed fracture of left distal radius: Status: Acute Assessment and plan: Madina is a 77-year-old who has a comminuted, intra-articular, shortened, and displaced distal radius fracture. Given the shortening of the displacement along with the intra-articular nature of the fracture I discussed treatment options with her. I would recommend proceeding with operative fixation at this time. This would more reliably restore the anatomy of the wrist and allow her to function at a higher level. There are risks with this procedure versus close reduction. I discussed these risks with her to include bleeding, infection, pain, stiffness, malunion, nonunion, hardware prominence, hardware failure, damage to nerves and vessels, damage to muscle and tendons, tendon rupture, worsening arthritis, need for repeat procedures. Despite these risk, she elects to proceed. History of Present Illness History of Present Illness Chief Complaint: Left wrist fracture Narrative: Madina is a 77-year-old active female who was traveling in [place]. She slipped on a rock and fell onto an outstretched left hand and suffered a comminuted, displaced, shortened, intra-articular wrist fracture. She was seen in the emergency department locally where she was diagnosed with this injury. Given the severity of the fracture I was called remotely to evaluate the fracture and recommended surgical treatment. She was placed in a splint. Her pain has been controlled. She denies numbness or tingling. She denies any open injuries or open wounds. She denies any head trauma or injury to the elbow. She did have a wrist fracture years ago to the left side which healed uneventfully. She has been previously diagnosed with osteopenia but does not currently take any other medications that some calcium and vitamin D. Review of Systems All systems reviewed & are unremarkable except as noted in HPI and below PFSH All Active Problems Osteoarthritis of left shoulder region (Acute) Left rotator cuff tear (Acute) Primary osteoarthritis of left hip (Acute) Status post total hip replacement, left (Acute 03/09/20) Sensorineural hearing loss, bilateral (Acute 11/25/13) COVID-19 (Acute) Closed fracture of left distal radius (Acute) Medical History Depression History of wrist fracture L wrist, hardware removed Surgical History History of arthroscopic knee surgery L Knee History of bowel resection History of cataract surgery History of colonoscopy History of hip replacement R Hip 02/2011 L Family History Mother , No pertinent PMHx No problems noted. Father , No pertinent PMHx No problems noted. Brother Cancer prostate CA in remission Social History Smoking/Tobacco Use Status: Former Tobacco Use Quit Date: 10/15/64 Smoking risk assessment performed?: Yes Alcohol Intake: never Drug use: Never Substance use type: does not use Current gender identity: female Do you feel safe at home: Yes (Spouse in room) Do you feel safe in your relationship?: Yes Female Reproductive History Menstrual Menopause type: natural Meds Allergies and Home Medications Allergies Allergy/AdvReac Type Severity Reaction Status Date / Time polyethylene glycol 3350 AdvReac Intermediate Skin Rash Verified 04/25/22 10:48 [From Miralax] Home Medications Medication Instructions Recorded Confirmed Type Citizen Of [place] Hortencia 1 tab PO PRN PRN 03/03/20 04/26/22 History bupropion HCl 150 mg 24 hr tablet, 150 mg PO QHS 03/03/20 04/26/22 History extended release (Wellbutrin XL) bupropion HCl 300 mg 24 hr tablet, 300 mg PO QHS 03/03/20 04/26/22 History extended release (Wellbutrin XL) escitalopram oxalate 20 mg tablet 20 mg PO QHS 03/03/20 04/26/22 History (Lexapro) fluticasone propionate 110 1 puff inhalation BID 03/03/20 04/26/22 History mcg/actuation HFA aerosol inhaler (Flovent HFA) calcium citrate mal.-vit 1 tab PO DAILY 03/05/20 04/26/22 History D2-magnesium ox 200 mg-200 unit-25 mg tablet omega 1-una-bvw-fish oil 1,000 mg 2 cap PO DAILY 03/05/20 04/26/22 History (120 mg-180 mg) capsule (Fish Oil) acetaminophen 500 mg tablet 1,000 mg PO Q8H PRN pain #90 tabs 03/09/20 04/26/22 Rx lysine HCl 1,000 mg tablet 1,000 mg PO DAILY 03/11/21 04/26/22 History omeprazole 20 mg tablet,delayed 20 mg PO DAILY 03/11/21 04/26/22 History release hydrocodone 5 mg-acetaminophen 325 1 tab PO Q6H PRN pain #10 tabs 04/26/22 Rx mg tablet ibuprofen 600 mg tablet 600 mg PO TID PRN #90 tabs 04/26/22 Rx Exam Resp Effort & Inspection: normal respiratory effort Auscultation: clear to auscultation bilaterally Cardio Rate: regular rate Rhythm: regular rhythm Extrem Other: Evaluation of the left hand is in the splint. There is some swelling of the fingers. She endorses full sensation of the median, radial, ulnar nerve. Active finger extension and finger flexion. Results Imaging Imaging Studies: X-ray of the left wrist was reviewed via email and text. These images show multiple views of the left wrist with severe shortening, loss rate inclination and dorsal angulation of about 40 degrees and intra-articular split.
--- NOTE | 2022-04-26 10:14 | W.ANESPRE ---
General Info Height: 5 ft 4 in Weight: 62.596 kg Body Mass Index (BMI): 23.6 Surgical Procedure: Operation Date: 04/26/22 11:40 Proposed Procedure Side Surgeon p Wrist ORIF Distal Radius Left Nba Braun MD Meds Allergies and Home Medications Allergies Allergy/AdvReac Type Severity Reaction Status Date / Time polyethylene glycol 3350 AdvReac Intermediate Skin Rash Verified 04/25/22 10:48 [From Miralax] Home Medication Medication Instructions Recorded Azerbaijani Hortencia 1 tab PO PRN PRN 03/03/20 bupropion HCl 150 mg 24 hr tablet, 150 mg PO QHS 03/03/20 extended release (Wellbutrin XL) bupropion HCl 300 mg 24 hr tablet, 300 mg PO QHS 03/03/20 extended release (Wellbutrin XL) escitalopram oxalate 20 mg tablet 20 mg PO QHS 03/03/20 (Lexapro) fluticasone propionate 110 1 puff inhalation BID 03/03/20 mcg/actuation HFA aerosol inhaler (Flovent HFA) calcium citrate mal.-vit 1 tab PO DAILY 03/05/20 D2-magnesium ox 200 mg-200 unit-25 mg tablet omega 9-zuz-arb-fish oil 1,000 mg 2 cap PO DAILY 03/05/20 (120 mg-180 mg) capsule (Fish Oil) acetaminophen 500 mg tablet 1,000 mg PO Q8H PRN pain #90 tabs 03/09/20 lysine HCl 1,000 mg tablet 1,000 mg PO DAILY 03/11/21 omeprazole 20 mg tablet,delayed 20 mg PO DAILY 03/11/21 release Current Visit Medications: Current Medications Generic Name Dose Route Start Last Admin Trade Name Freq PRN Reason Stop Dose Admin Ringer's Solution 1,000 mls @ 80 mls/hr 04/26/22 06:00 IV 05/25/22 23:59 INFUSION RADHA Cefazolin Sodium/Dextrose 2 gm in 50 mls @ 100 mls/hr 04/26/22 06:00 Ancef Duplex IVPB 05/25/22 23:59 PREOP RADHA IV Miscellaneous Supplies 1 each 04/26/22 06:00 Iv Access IV 05/25/22 23:59 DIRECTED RADHA Sodium Chloride 0 ml 04/26/22 06:00 Normal Saline Flush 10 Ml Syr IV 05/25/22 23:59 PRN PRN Sodium Chloride 0 ml 04/26/22 06:00 Normal Saline 10 Ml Vial IJ 05/25/22 23:59 DIRECTED PRN Sterile Water 0 ml 04/26/22 06:00 Water,Injection,Sterile 10 Ml Vial IJ 05/25/22 23:59 DIRECTED PRN PFSH Active Problems Active Problems: Problem Status Onset Code 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 Left rotator cuff tear M75.102 Primary osteoarthritis of left hip M16.12 Status post total hip replacement, 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 Sensorineural hearing loss, bilateral 11/25/13 H90.3 COVID-19 U07.1 Closed fracture of left distal radius S52.502A Medical History Medical History Depression History of wrist fracture L wrist, hardware removed Surgical History Surgical History History of arthroscopic knee surgery L Knee History of bowel resection History of cataract surgery History of colonoscopy History of hip replacement R Hip 02/2011 L Tobacco Smoking/Tobacco Use Status: Former Tobacco Use Alcohol Alcohol Intake: never Substance Use Substance use: Never Substance use type: does not use Vital Signs and Lab Results Lab Results Blood Type / Crossmatch: No Data to Display Complete Blood Count: No Data to Display Complete Metabolic Panel: No Data to Display Liver Function Panel: No Data to Display Coagulation Panel: No Data to Display Cardiac Panel: No Data to Display Arterial Blood Gas: No Data to Display Venous Blood Gas: No Data to Display Pancreas Panel: No Data to Display Thyroid Panel: No Data to Display Infectious Disease: Coronavirus (COVID-19)(PCR) Negative (Negative) 04/26/22 07:15 Coronavirus 2019 Source Nasal/Nares 04/26/22 07:15 Blood Cultures: No Data to Display Toxicology Panel: No Data to Display Anesthesia Assessment and Plan Anesthesia History Personal History: No History of Anesthesia Complications Family History: No Family History of Anesthesia Complications Exercise Tolerance Exercise Tolerance: Metabolic Equivalents>4 Pertinent Negatives Pertinent Negatives: No Symptoms of GERD Cardiac & Pulmonary Exam Cardiac Exam: Normal S1/S2 Heart Sounds Pulmonary Exam: Clear Bilateral Breath Sounds Implantable Cardiac Device Does patient have a Pacemaker or an ICD?: No Airway Exam Known Difficult Airway: No Mallampati Class: 2 Mouth Opening: Normal (> 3cm) Thyromental Distance: Greater than 3 cm Neck Range of Motion: Full ROM Neck Circumference: Normal Teeth Condition: Normal Dentition ASA Classification ASA Score: ASA 2 Emergency Case?: No NPO Status NPO Status: NPO Clears >2 hours, Solids >8 hours Anesthesia Plan Resuscitation Status: Full Code Anesthesia Technique: General Anesthesia Airway Planned: Endotracheal Tube Pain Management: Surgeon and patient request nerve block Monitors Used: Standard Monitors
--- NOTE | 2022-04-26 10:17 | W.PM.DSUDISC ---
Discharge Plan Disposition Patient Disposition: HOME Condition: Good Discharge Details Reason For Visit: ORIF DISTAL RADIUS WRIST Attending Provider: Nba Braun Primary Care Provider: Adela Carbajal Home Meds and New Rx's Prescriptions: New hydrocodone-acetaminophen 5-325 mg tablet 1 tab PO Q6H PRN (Reason: pain) Qty: 10 0RF ibuprofen 600 mg tablet 600 mg PO TID PRNQty: 90 3RF Continued omega 3-eut-pme-fish oil [Fish Oil] 1,000 mg (120 mg-180 mg) capsule 2 cap PO DAILY calcium cit mal-vit D2-mag ox 200-200-25 mg-unit-mg tablet 1 tab PO DAILY Label Comments: PT STATES SHE TAKES 1 TAB BID lysine HCl 1,000 mg tablet 1,000 mg PO DAILY omeprazole 20 mg tablet,delayed release (DR/EC) 20 mg PO DAILY fluticasone propionate [Flovent HFA] 110 mcg/actuation Hfa Aerosol Inhaler 1 puff INHALATION BID escitalopram oxalate [Lexapro] 20 mg Tablet 20 mg PO QHS bupropion HCl [Wellbutrin XL] 300 mg Tablet Extended Release 24 Hr 300 mg PO QHS Label Comments: takes with 150 mg to equal 450 mg bupropion HCl [Wellbutrin XL] 150 mg Tablet Extended Release 24 Hr 150 mg PO QHS Label Comments: takes with 300 mg to equal 450 mg Tanzanian Hortencia tablet 1 tab PO PRN PRN acetaminophen 500 mg tablet 1,000 mg PO Q8H PRN (Reason: pain) Qty: 90 3RF Discharge Instructions Additional Instructions: Wrist Fracture Fixation Discharge Instructions Activity: You should keep the hand/wrist elevated as much as possible for the first few days. You may use the other fingers as tolerated but avoid trying to do too much too soon. You may perform light activities with the splint in place. Dressing/Cast: Your splint should stay in place at all times. Do NOT get it wet. You may loosen the CHRISTOPHER wrap if you feel it is too tight and then rewrap more loosely. Medications: - You should take Tylenol and Ibuprofen for baseline pain control. - You have been prescribed a stronger pain medication, Hydrocodone, for breakthrough pain. - You may apply ice over the wrist, just double bag so it doesn't get wet. Follow-up: 10-14 days Referrals: Nba Braun MD [ [facility] STAFF PHYSICIAN] - Equipment/Supplies: Splint Activity:: Elevate Remove Dressings/Wound Care:: Do Not Remove Shower/Bathe:: Cover Diet:: As Tolerated Discharge Orders Discharge Orders: Discharge Order (Routine); Ordered 04/26/22 Ordered By: Everardo Kilpatrick DS: Diagnosis Discharge Diagnosis (1) Closed fracture of left distal radius: Status: Acute
[2022-04-26] MEDS: Lactated Ringers 1,000 ML 80 ML IV (10:45)
--- NOTE | 2022-04-26 10:47 | W.ANESPRE ---
General Info Date of Service Date Performed: 04/26/22 Height: 5 ft 4 in Weight: 64.4 kg Body Mass Index (BMI): 24.3 Surgical Procedure: Operation Date: 04/26/22 11:40 Proposed Procedure Side Surgeon p Wrist ORIF Distal Radius Left Nba Braun MD Pre-Op Diagnosis Post-Op Diagnosis CLOSED FRACTURE LEFT DISTAL RADIUS Meds Allergies and Home Medications Allergies Allergy/AdvReac Type Severity Reaction Status Date / Time polyethylene glycol 3350 AdvReac Intermediate Skin Rash Verified 04/25/22 10:48 [From Miralax] Home Medication Medication Instructions Recorded Lithuanian Hortencia 1 tab PO PRN PRN 03/03/20 bupropion HCl 150 mg 24 hr tablet, 150 mg PO QHS 03/03/20 extended release (Wellbutrin XL) bupropion HCl 300 mg 24 hr tablet, 300 mg PO QHS 03/03/20 extended release (Wellbutrin XL) escitalopram oxalate 20 mg tablet 20 mg PO QHS 03/03/20 (Lexapro) fluticasone propionate 110 1 puff inhalation BID 03/03/20 mcg/actuation HFA aerosol inhaler (Flovent HFA) calcium citrate mal.-vit 1 tab PO DAILY 03/05/20 D2-magnesium ox 200 mg-200 unit-25 mg tablet omega 9-xpx-aez-fish oil 1,000 mg 2 cap PO DAILY 03/05/20 (120 mg-180 mg) capsule (Fish Oil) acetaminophen 500 mg tablet 1,000 mg PO Q8H PRN pain #90 tabs 03/09/20 lysine HCl 1,000 mg tablet 1,000 mg PO DAILY 03/11/21 omeprazole 20 mg tablet,delayed 20 mg PO DAILY 03/11/21 release hydrocodone 5 mg-acetaminophen 325 1 tab PO Q6H PRN pain #10 tabs 04/26/22 mg tablet ibuprofen 600 mg tablet 600 mg PO TID PRN #90 tabs 04/26/22 Current Visit Medications: Current Medications Generic Name Dose Route Start Last Admin Trade Name Freq PRN Reason Stop Dose Admin Acetaminophen 650 mg 04/26/22 10:16 Acetaminophen 325 Mg Tab PO Q4H PRN PRN Hydrocodone Bitart/Acetaminophen 0 tab 04/26/22 10:16 Hydrocodone 5/Acetaminophen 325 Tab PO Q3H PRN PRN Pain Ringer's Solution 1,000 mls @ 80 mls/hr 04/26/22 06:00 04/26/22 10:45 IV 05/25/22 23:59 80 mls/hr INFUSION RADHA Administration Cefazolin Sodium/Dextrose 2 gm in 50 mls @ 100 mls/hr 04/26/22 06:00 Ancef Duplex IVPB 05/25/22 23:59 PREOP RADHA IV Miscellaneous Supplies 1 each 04/26/22 06:00 Iv Access IV 05/25/22 23:59 DIRECTED RADHA Sodium Chloride 0 ml 04/26/22 06:00 Normal Saline Flush 10 Ml Syr IV 05/25/22 23:59 PRN PRN Sodium Chloride 0 ml 04/26/22 06:00 Normal Saline 10 Ml Vial IJ 05/25/22 23:59 DIRECTED PRN Sterile Water 0 ml 04/26/22 06:00 Water,Injection,Sterile 10 Ml Vial IJ 05/25/22 23:59 DIRECTED PRN PFSH Active Problems Active Problems: Problem Status Onset Code 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 Left rotator cuff tear M75.102 Primary osteoarthritis of left hip M16.12 Status post total hip replacement, 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 Sensorineural hearing loss, bilateral 11/25/13 H90.3 COVID-19 U07.1 Closed fracture of left distal radius S52.502A Medical History Medical History Depression History of wrist fracture L wrist, hardware removed Surgical History Surgical History History of arthroscopic knee surgery L Knee History of bowel resection History of cataract surgery History of colonoscopy History of hip replacement R Hip 02/2011 L Tobacco Smoking/Tobacco Use Status: Former Tobacco Use Alcohol Alcohol Intake: never Substance Use Substance use: Never Substance use type: does not use Vital Signs and Lab Results Vital Signs Most Recent Vital Signs in EMR: Most Recent Vital Signs Temp Pulse Resp BP Pulse Ox 36.6 C 75 16 143/81 H 94 04/26/22 10:30 04/26/22 10:30 04/26/22 10:30 04/26/22 10:30 04/26/22 10:30 Lab Results Blood Type / Crossmatch: No Data to Display Complete Blood Count: No Data to Display Complete Metabolic Panel: No Data to Display Liver Function Panel: No Data to Display Coagulation Panel: No Data to Display Cardiac Panel: No Data to Display Arterial Blood Gas: No Data to Display Venous Blood Gas: No Data to Display Pancreas Panel: No Data to Display Thyroid Panel: No Data to Display Infectious Disease: Coronavirus (COVID-19)(PCR) Negative (Negative) 04/26/22 07:15 Coronavirus 2019 Source Nasal/Nares 04/26/22 07:15 Blood Cultures: No Data to Display Toxicology Panel: No Data to Display Imaging and Studies Imaging and Studies Study information below may be from another EMR and interpreted by another provider. Please see original notes in EMR for more complete details. EKG Summary: Conclusion Sinus rhythm...normal P axis, V-rate 60- 99. Sinus. Normal axis. No STEMI. I have reviewed and interpreted ECG and agree with software generated interpretation. 01/15/22 Anesthesia Assessment and Plan Anesthesia History Personal History: No History of Anesthesia Complications Family History: No Family History of Anesthesia Complications Exercise Tolerance Exercise Tolerance: Metabolic Equivalents>4 Pertinent Negatives Pertinent Negatives: No Symptoms of GERD, No Major Cardiovascular Symptoms or Complaints, No Major Pulmonary Symptoms or Complaints and No History of CVA/TIA Cardiac & Pulmonary Exam Cardiac Exam: Normal S1/S2 Heart Sounds Pulmonary Exam: Clear Bilateral Breath Sounds Implantable Cardiac Device Does patient have a Pacemaker or an ICD?: No Airway Exam Known Difficult Airway: No Mallampati Class: 1 Mouth Opening: Normal (> 3cm) Thyromental Distance: Greater than 3 cm Neck Range of Motion: Full ROM Neck Circumference: Normal Teeth Condition: Normal Dentition ASA Classification ASA Score: ASA 2 Emergency Case?: No NPO Status NPO Status: NPO Clears >2 hours, Solids >8 hours Anesthesia Plan Resuscitation Status: Full Code Anesthesia Technique: General Anesthesia Airway Planned: LMA Pain Management: Surgeon and patient request nerve block Monitors Used: Standard Monitors
[2022-04-26] MEDS: ceFAZolin 2 GM/50 ML BAG IVPB (11:25)
--- NOTE | 2022-04-26 11:45 | W.ANESNERVE ---
Nerve Block Single Injection Procedure Date and Time Date Performed: 04/26/22 Procedure Start: 11:07 Location Where Procedure Performed Procedure Location: Day Surgery Unit Reason Performed: Postoperative Analgesia Requesting Provider: Nba Braun Timeout Performed Timeout Performed: Yes Monitoring Used ECG, Blood Pressure, SpO2 and See EMR for corresponding vital signs Sterility Sterility: Hand Hygiene, Surgical Cap, Surgical Mask, Sterile Gloves and Chlorhexidine Sedation Given During Procedure Sedation Given (Indicate Dose Given): Versed IV Dose:: 2 mg Patient Mental Status Patient Mental Status: Sedate with meaningful communication Nerve Block 1st Nerve Block: Laterality: Left Block Type: Supraclavicular Needle / Catheter Used: 100mm SonoPlex II Local Anesthetic Bolus (Indicate Dose Given): Lidocaine used for local infiltration of skin, Injected in 3-5ml increments after negative blood aspiration and Bupivacaine 0.5% Dose:: 15 mL Additives (Indicate Dose Given): Precedex Dose:: 40 mcg Ultrasound: Sterile probe cover and gel used Ultrasound Image Saved?: Yes Nerve Stimulator: Not Used Paresthesia: None Procedure Tolerated: No Complications and Patient tolerated well Procedure Outcome: Successful Performed By: Natasha Penny Supervised By: Swati Parrish
[2022-04-26] MEDS: Bupivacaine 0.5% Pres-Free W/EPI 10 ML VIAL (12:26)
--- NOTE | 2022-04-26 12:47 | W.PM.OP ---
Date of service: 04/26/22 Time of Service: 12:49 Operative Note Operative Note DATE OF PROCEDURE: 04/26/22 PRE-OP DIAGNOSIS: Left Distal Radius Fracture POST-OP DIAGNOSIS: same PROCEDURE: Open Reduction and Internal Fixation of Left Distal Radius SURGEON: Nba Braun [employer] KNOCK OUT WORKER: Everardo Kilpatrick ANESTHESIA TYPE: General:No Airway and Primary Nerve Block Refer to Anesthesia Record ESTIMATED BLOOD LOSS: 10 PATHOLOGY: none sent TOURNIQUET TIME: 46 COMPLICATIONS: None Patient was transported to: PACU Patient's condition: stable Indications: Madina is a 77 year old female who I have seen for a distal radius fracture. Given the deformity, displacement, fracture pattern, and effect on daily function, I recommended surgical fixation. I reviewed the risk of the procedure to include bleeding, infection co-pay, stiffness, damage to nerves and vessels, damage to muscles and tendons, malunion, nonunion, hardware prominence, tendon rupture, need for repeat procedures. Despite these risks, the patient elected to proceed. Findings: There is a distal radius fracture which had 2 articular segments. It was reduced and fixed with a Synthes volar locking plate. Procedure Description: Madina was greeted in the preoperative holding area. The correct patient and site was confirmed and marked. The history and physical was updated. The consent was reviewed the patient and signed. The patient was taken to the PACU for administration of regional anesthetic, supraclavicular block. The patient was taken to the operating room and placed in the supine position. All bony problems were well-padded. The left arm was placed onto a radiolucent hand table. A nonsterile tourniquet was placed high up on the arm. Prophylactic antibiotics in the form of cefazolin were administered. The left arm was prepped with ChloraPrep and draped in a standard fashion. A timeout was performed for safe surgery. A standard longitudinal incision was made overlying the flexor carpi radialis tendon starting at the distal wrist crease and moving proximally. The skin was incised sharply. The flexor carpi radialis tendon and its sheath is identified. The sheath was opened. The tendon was moved ulnarly in the floor of the sheath was incised. Blunt dissection the flexor pollicis longus muscle belly and tendon were also made radially exposing the pronator quadratus and the distal radius. The printer quadratus was elevated with an ulnar-based flap. This exposed the volar distal radius and the fracture. A garcia elevator was used for full exposure of the volar surface of the distal radius. The primary fracture line was exposed. Using a series of elevators, curettes, and knife, the fracture was fully debrided of any fibrous tissue and callus formation. I used a freer elevator to help mobilize the fragments. The distal fragment was difficult to disengage and required the use of a freer to shoehorn the fragment out. I then performed a closed reduction. Using gentle traction and fracture manipulation, this reduction was held. Fluoroscopic images were used to confirm adequate reduction. An appropriately sized Synthes volar locking plate was then placed onto the bony surface of the distal radius. Was then held there with a distal radius clamp sandwiching the plate to the distal segment. A single K wire was placed through the distal end. Fluoroscopy was once again used to confirm appropriate positioning of the plate on the distal radius. A reduction K wire was placed into the slotted hole on the shaft but not tightened all the way to allow for manipulation of the distal segment onto the proximal shaft. A single nonlocking screw was placed to the distal portion of the plate securing the plate against the bone of the distal radial metaphysis. Once again, the plate was evaluated to make sure it was aligned appropriately. The single screw was also checked to make sure it was in appropriate positioning for trajectory of future screws. The remainder of the screws within the volar locking plate were filled with locking screws. These were made sure not to penetrate the dorsal cortex. Once these were applied the proximal portion of the plate was further reduced down onto the shaft, which further reduce the distal segment. This was held in position with a tightened reduction K wire. Fluoroscopy was then used against confirm appropriate reduction. Nonlocking screws were placed within the 3 shaft screw holes. Final x-rays were obtained which demonstrated adequate reduction and positioning of hardware. The dorsal sunrise view was also obtained to ensure correct sizing of screws. The wound was then thoroughly irrigated. The pronator quadratus was reapproximated with a 0 Vicryl. The tourniquet was released and there was no notable vascular injury. The fingers were warm and well-perfused. The deep dermal layer was closed with a 2-0 Vicryl. The skin was closed with 4-0 nylon. The wound was dressed with Xeroform, 4 x 4's, web roll. A short arm splint was applied. At the end the case all counts are correct. Patient was transferred back to the PACU in stable condition.
--- NOTE | 2022-04-26 12:50 | DI.RAD_ITS ---
Exam(s) XR WRIST LT LIMITED EXAM: XR WRIST LT LIMITED CLINICAL HISTORY: CLOSED FRACTURE LEFT DISTAL RADIUS. TECHNIQUE: 2D digital imaging was performed. COMPARISON: No exams were available for comparison FINDINGS: Fluoroscopy pre provided during open reduction internal fixation of distal radius fracture with place ment of volar fixation plate. See procedure report for details. Total fluoroscopy time 55 seconds. Total cumulative dose 0.2545mGy IMPRESSION: DATA REPOSITORY: RADIATION DOSE DELIVERED:
[2022-04-26] MEDS: fentaNYL 100 MCG/2 ML VIAL IVP (13:15)
--- NOTE | 2022-04-26 13:34 | W.ANESPOSTOP ---
Postoperative Evaluation Date, Time and Location Date Performed: 04/26/22 Time Performed: 13:34 Patient Location: PACU Vital Signs Most Recent Imported Vital Signs: Most Recent Vital Signs Temp Pulse Resp BP Pulse Ox 36.4 C L 73 20 133/95 H 94 04/26/22 12:55 04/26/22 13:25 04/26/22 13:25 04/26/22 13:25 04/26/22 13:25 Pain Score Most Recent Pain Score: Most Recent Pain Score Pain Level 4 04/26/22 13:25 Assessment Mental Status: Awake (Alert & Oriented to Patient Baseline) Airway and Respiratory Function: Patent airway with normal (patient baseline) respiratory exam Cardiovascular Function: Hemodynamically Stable Hydration Status: Adequately Hydrated Nausea & Vomiting: No Nausea or Vomiting Pain: Pain is tolerable per patient Peripheral Nerve Block: Regional nerve block not resolved at time of post operative discharge
== END 2022-04-26 15:30 | disposition home or self-care (01) ==
PROVIDERS: PCP Internal Medicine Adolescent Medicine; Visit Provider Student in an Organized Health Care Education/Training Program
PROC: (CPT 25608; principal; 2022-04-26 11:30)
DX: S52.572A Other intraarticular fracture of lower end of left radius, initial encounter for closed fracture (principal); W01.0XXA Fall on same level from slipping, tripping and stumbling without subsequent striking against object, initial encounter
CPT/HCPCS: 25608; C1776; 76942; 73100; J0690; J1100; J1885; J2250; J2405; J3010

== ENCOUNTER 2022-04-26 15:12 | Outpatient (REF) | payer MEDICARE, SELFPAY ==
[2022-04-26 07:38] LABS: Source Nasal/Nares
[2022-04-26 08:33] LABS: COVID-19 PCR Negative (Negative)
== END 2022-04-26 15:13 | disposition home or self-care (01) ==
LOC: LBN 15:12
PROVIDERS: PCP Internal Medicine Adolescent Medicine; Visit Provider Student in an Organized Health Care Education/Training Program
DX: Z20.822 Contact with and (suspected) exposure to COVID-19 (principal); Z01.818 Encounter for other preprocedural examination
CPT/HCPCS: 87635

== ENCOUNTER 2022-04-26 15:14 | Outpatient (REF) | payer MEDICARE, SELFPAY | END 2022-04-26 15:15 | disposition home or self-care (01) | LOC: LBN 15:14 | PROVIDERS: PCP Internal Medicine Adolescent Medicine; Visit Provider Student in an Organized Health Care Education/Training Program ==

== ENCOUNTER 2022-05-08 14:22 | Outpatient (CLI) | payer MEDICARE, SELFPAY ==
--- NOTE | 2022-05-08 14:15 | DI.RAD_ITS ---
Exam(s) XR WRIST LT LIMITED EXAM: XR WRIST LT LIMITED CLINICAL HISTORY: follow up. TECHNIQUE: 2D digital imaging was performed. COMPARISON: No exams were available for comparison FINDINGS: Two in cast views Stable position alignment volar fixation across the distal radius fracture site. No hardware loosening. No radiographic evidence IMPRESSION: DATA REPOSITORY: RADIATION DOSE DELIVERED:
== END 2022-05-08 14:23 | disposition home or self-care (01) ==
LOC: DIORS 14:23
PROVIDERS: PCP Internal Medicine Adolescent Medicine; Referring Provider Internal Medicine Adolescent Medicine; Visit Provider Physician Assistant Surgical
DX: S62.102A Fracture of unspecified carpal bone, left wrist, initial encounter for closed fracture (principal); Z47.89 Encounter for other orthopedic aftercare; X58.XXXA Exposure to other specified factors, initial encounter
CPT/HCPCS: 73100

== ENCOUNTER 2022-06-08 10:44 | Outpatient (CLI) | payer MEDICARE, SELFPAY ==
--- NOTE | 2022-06-08 10:30 | DI.RAD_ITS ---
Exam(s) XR WRIST LT LIMITED EXAM: XR WRIST LT LIMITED CLINICAL HISTORY: s/p ORIF L WRIST TECHNIQUE: COMPARISON: CR XR WRIST LT LIMITED from 05/08/2022 FINDINGS: Two views were obtained and show previously described plate and screw fixation of fracture of the dis yuliet radius. Alignment appears unchanged in comparison with examination of May 08. Moderate degen erative changes of the carpus again noted. IMPRESSION: RADIATION DOSE DELIVERED: Total DLP
== END 2022-06-08 10:45 | disposition home or self-care (01) ==
LOC: DIORS 10:45
PROVIDERS: PCP Internal Medicine Adolescent Medicine; Referring Provider Internal Medicine Adolescent Medicine; Visit Provider Student in an Organized Health Care Education/Training Program
DX: S62.102A Fracture of unspecified carpal bone, left wrist, initial encounter for closed fracture (principal); X58.XXXA Exposure to other specified factors, initial encounter
CPT/HCPCS: 73100

== ENCOUNTER 2023-01-03 11:04 | Outpatient (CLI) | payer MEDICARE, SELFPAY ==
--- NOTE | 2023-01-03 10:30 | DI.RAD_ITS ---
Exam(s) XR SHOULDER LT COMPLETE 2+V EXAM: XR SHOULDER LT COMPLETE 2+V CLINICAL HISTORY: LEFT SHOULDER F/U. TECHNIQUE: 2D digital imaging was performed of the left shoulder. Two images were obtained. AP and axillary views were obtained. COMPARISON: No exams were available for comparison FINDINGS: BONES: No acute fracture is present. No bony destructive lesion is seen. The bones are osteopenic. JOINTS: No dislocation present. There are marked degenerative changes seen at the glenohumeral joint characterized by joint space narrowing and bony hypertrophy. Moderate hypertrophic changes are seen at the acromioclavicular joint. SOFT TISSUE: Normal. IMPRESSION: Marked osteoarthritis of the left shoulder. DATA REPOSITORY: RADIATION DOSE DELIVERED:
== END 2023-01-03 11:05 | disposition home or self-care (01) ==
LOC: DIORS 11:04
PROVIDERS: PCP Nurse Practitioner Family; Referring Provider Nurse Practitioner Family; Visit Provider Student in an Organized Health Care Education/Training Program
DX: M19.012 Primary osteoarthritis, left shoulder (principal)
CPT/HCPCS: 99213; 73030

== ENCOUNTER 2023-01-22 12:04 | Outpatient (CLI) | payer MEDICARE, SELFPAY ==
--- NOTE | 2023-01-22 11:45 | DI.RAD_ITS ---
Exam(s) XR KNEE LT 3V AP,LAT,BERNARD EXAM: XR KNEE LT 3V AP,LAT,BERNARD CLINICAL HISTORY: LEFT KNEE PAIN. TECHNIQUE: 2D digital imaging was performed of the left knee. Three images were obtained. AP, late ral and PA tunnel views were obtained. COMPARISON: CR XR KNEE LT 4V AP,LAT,BERNARD,PAT from 03/05/2020 FINDINGS: BONES: No acute fracture is present. No bony destructive lesion is seen. JOINTS: There is tricompartment joint space narrowing and periarticular spurring. There is chondroca lcinosis in the femoral tibial joint. There is a small joint effusion. SOFT TISSUE: Normal. IMPRESSION: Osteoarthritis of the knee. DATA REPOSITORY: RADIATION DOSE DELIVERED:
== END 2023-01-22 12:05 | disposition home or self-care (01) ==
LOC: DIORS 12:04
PROVIDERS: PCP Nurse Practitioner Family; Referring Provider Nurse Practitioner Family; Visit Provider Student in an Organized Health Care Education/Training Program
DX: M25.462 Effusion, left knee; M17.12 Unilateral primary osteoarthritis, left knee
CPT/HCPCS: 20610; 73562; J1040

== ENCOUNTER 2023-02-13 05:02 | Outpatient (CLI) | payer MEDICARE, SELFPAY ==
[2023-02-13 12:45] LABS: Hemoglobin A1C 5.1 % (<5.7)
[2023-02-13 13:01] LABS: ALT 31 U/L (14-59); AST 25 U/L (15-37); Albumin 3.7 g/dL (3.4-5.0); Alkaline Phosphatase 74 U/L (46-116); Anion Gap 8.7 mmol/L (3-11); BUN 16 mg/dL (7-18); Bilirubin, Total 0.4 mg/dL (0.2-1.0); CO2 29.3 mmol/L (21.0-32.0); Calcium 8.8 mg/dL (8.5-10.1); Calculated LDL 96 mg/dL (<100); Chloride 103 mmol/L (98-107); Cholesterol 179 mg/dL (<200); Estimated GFR 57.31 (mL/min/1.73m2); Glucose 79 mg/dL (74-106); HDL Cholesterol 75 mg/dL (40-60); Potassium 4.1 mmol/L (3.5-5.1); Sodium 141 mmol/L (136-145); TSH (W/Ref FT4) 1.76 uIU/mL (0.36-3.74); Total Protein 7.6 g/dL (6.4-8.2); Triglyceride 40 mg/dL (<150)
[2023-02-13 14:05] LABS: Vitamin D 25 Total 52.5 ng/mL (30-100)
== END 2023-02-13 05:03 | disposition home or self-care (01) ==
LOC: LOS 05:03
PROVIDERS: PCP Nurse Practitioner Family; Visit Provider Nurse Practitioner Family
DX: E78.5 Hyperlipidemia, unspecified (principal); M81.0 Age-related osteoporosis without current pathological fracture; U07.1 COVID-19; E55.9 Vitamin D deficiency, unspecified
CPT/HCPCS: 36415; 80053; 80061; 82306; 83036; 84443

== ENCOUNTER 2024-04-02 04:49 | Outpatient (CLI) | payer MEDICARE, SELFPAY ==
[2024-04-02 13:30] LABS: Abs Immature Grans 0.01 10^3/uL (0.0-0.06); Absolute Basophil Count 0.05 10^3/uL (0.0-0.2); Absolute Eosinophil Count 0.16 10^3/uL (0.0-0.7); Absolute Lymphocyte Count 1.44 10^3/uL (1.2-3.4); Absolute Monocyte Count 0.57 10^3/uL (0.1-0.8); Absolute Neutrophil Count 5.97 10^3/uL (1.2-6.7); Basophils % 0.6 %; HCT 40.3 % (36.0-46.0); Immature Grans % 0.1 %; Lymphocytes % 17.6 %; MCHC 32.3 % (32.0-36.0); MCV 96 fL (80-95); MPV 9.2 fL (8.0-11.0); Neutrophils % 72.7 %; Platelet Count 291 10^3/uL (130-400); RDW 13.1 % (11.7-14.6); RDW-SD 46.5 fL
[2024-04-02 14:04] LABS: Anion Gap 7.3 mmol/L (3-11); BUN 20 mg/dL (7-18); CO2 27.7 mmol/L (21.0-32.0); Calcium 8.4 mg/dL (8.5-10.1); Chloride 103 mmol/L (98-107); Glucose 87 mg/dL (74-106); Potassium 4.2 mmol/L (3.5-5.1); Sodium 138 mmol/L (136-145); TSH (W/Ref FT4) 1.42 uIU/mL (0.36-3.74)
[2024-04-03 09:31] LABS: HBs Antibody, Quant <3.1 mIU/mL (See Note); Hep B Surface Ab Negative (See Note); Hepatitis B Core Antibody Negative (Negative); Hepatitis B Surface Antigen Negative (Negative)
[2024-04-03 09:56] LABS: HIV-1/2 Ag & Ab Screen Negative (Negative)
[2024-04-03 10:11] LABS: Hepatitis C Ab w Rflx HCV PCR Negative (Negative)
== END 2024-04-02 04:50 | disposition home or self-care (01) ==
LOC: LBO 04:49
PROVIDERS: PCP Nurse Practitioner Family; Visit Provider Nurse Practitioner Family
DX: Z00.00 Encounter for general adult medical examination without abnormal findings (principal); Z11.59 Encounter for screening for other viral diseases; F33.9 Major depressive disorder, recurrent, unspecified; Z11.4 Encounter for screening for human immunodeficiency virus [HIV]; J45.909 Unspecified asthma, uncomplicated; R03.0 Elevated blood-pressure reading, without diagnosis of hypertension; M85.80 Other specified disorders of bone density and structure, unspecified site
CPT/HCPCS: 36415; 80048; 86704; 86706; 86803; 87340; 87389; 84443; 85025

== ENCOUNTER → 2025-03-04 13:02 | Outpatient (BNVA) | payer MEDICARE, SELFPAY | PROVIDERS: PCP Nurse Practitioner Family; Referring Provider Nurse Practitioner Family; Visit Provider Student in an Organized Health Care Education/Training Program | DX: M19.012 Primary osteoarthritis, left shoulder (principal) | CPT/HCPCS: 99213 ==

== ENCOUNTER 2025-03-06 11:37 | Outpatient (CLI) | payer MEDICARE, SELFPAY ==
--- NOTE | 2025-03-06 11:30 | DI.RAD_ITS ---
Exam(s) XR KNEE RT 4V AP,LAT,BERNARD,PAT EXAM: XR KNEE RT 4V AP,LAT,BERNARD,PAT CLINICAL HISTORY: RIGHT KNEE PAIN. TECHNIQUE: 2D digital imaging was performed. Three views. COMPARISON: CR XR KNEE LT 3V AP,LAT,BERNARD from 01/22/2023 FINDINGS: BONES: No acute fracture is present. No bony destructive lesion is seen. JOINTS: The knee is normally aligned. There is mild narrowing of the medial of the lateral femoral t ibial joint space. There is mild to moderate periarticular spurring. The medial femoral tibial join t and patellofemoral joint spaces are maintained and show minimal periarticular spurring. No joint e ffusion is seen. SOFT TISSUE: Normal. IMPRESSION: [id number] degenerative changes of the lateral femoral tibial joint. DATA REPOSITORY: RADIATION DOSE DELIVERED:
--- NOTE | 2025-03-06 11:49 | DI.RAD_ITS ---
Exam(s) XR HIP RT COMPLETE AP PELVIS EXAM: XR HIP RT COMPLETE AP PELVIS CLINICAL HISTORY: RIGHT KNEE PAIN. TECHNIQUE: 2D digital imaging was performed. Two views COMPARISON: CR XR HIP LT AP LAT ONLY from 03/11/2021 FINDINGS: BONES: No acute fracture is present. No bony destructive lesion is seen. JOINTS: No dislocation present. Stable appearance of bilateral hip prostheses. No abnormal surroun ding lucencies. SOFT TISSUE: Stable appearance of ossification lateral to the left hip prosthesis. IMPRESSION: No acute abnormality. DATA REPOSITORY: RADIATION DOSE DELIVERED:
== END 2025-03-06 11:38 | disposition home or self-care (01) ==
LOC: DIORS 11:37
PROVIDERS: PCP Nurse Practitioner Family; Referring Provider Nurse Practitioner Family; Visit Provider Physician Assistant
DX: M17.11 Unilateral primary osteoarthritis, right knee; Z96.641 Presence of right artificial hip joint
CPT/HCPCS: 20610; 99213; J1010; 73502; 73564

== ENCOUNTER 2025-03-19 02:40 | Outpatient (CLI) | payer MEDICARE, SELFPAY ==
--- NOTE | 2025-03-19 09:00 | DI.RAD_ITS ---
Exam(s) RF JOINT INJ. FLUORO GUID RAD EXAM: RF JOINT INJ. FLUORO GUID RAD CLINICAL HISTORY: LEFT SHOULDER PAIN,ARTHRITIS LT GLENOHUMERAL JOINT,M19.012. The Patient has had p ersistent left shoulder pain. Noninvasive measures have been tried. To serve as both diagnostic and therapeutic, an injection under fluoroscopy was recommended. The risks of the procedure were discus sed with their Orthopedic provider and the patient elected to proceed. TECHNIQUE: 2D and realtime digital imaging was performed. CONTRAST MATERIAL: Water soluble contrast was utilized. COMPARISON: No exams were available for comparison FINDINGS: The Patient was greeted in the fluoroscopy room. The correct side was identified and the consent was reviewed with the patient and was signed. The patient was properly positioned on the fluoroscopy ta ble. The left shoulderwas then prepped and draped. The left shoulder injection starting point was i dentified by the bony landmarks and fluoroscopy. The skin and soft tissue in the tract of the inject ion was anesthetized with 1% Bupivacaine. A spinal needle was then inserted into the left shoulder j oint at the level of the glenohumeral joint under fluoroscopic guidance. A small amount of Omnipaque solution was injected to confirm intraarticular placement. Once confirmed, the left shoulder was in jected with 5cc of a solution containing 0.5% Bupivacaiine and 40 mg of Depo-Medrol. A bandaid was p laced on the injection site. The patient tolerated the procedure well and left the department in goo d condition. IMPRESSION: Successful left shoulder injection. RADIATION DOSE DELIVERED: Ka,r=15.6 mGy
[2025-03-19] MEDS: methylPREDNISolone ACETATE 40 MG/ML VIAL IM (15:19)
[2025-03-19] MEDS: Omnipaque 300 MG/ML 10 ML BTL IJ (15:20)
[2025-03-19] MEDS: Bupivacaine 0.5% Pres-Free 10 ML VIAL IJ (15:21)
== END 2025-03-19 03:00 ==
LOC: DI 02:40
PROVIDERS: PCP Nurse Practitioner Family; Visit Provider Student in an Organized Health Care Education/Training Program
DX: M19.012 Primary osteoarthritis, left shoulder (principal)
CPT/HCPCS: 20610; 77002; J0665; J1010

== ENCOUNTER 2025-04-02 01:15 | Outpatient (CLI) | payer MEDICARE, SELFPAY ==
[2025-04-02 13:49] LABS: ALT 32 U/L (14-59); AST 30 U/L (15-37); Albumin 3.8 g/dL (3.4-5.0); Alkaline Phosphatase 57 U/L (46-116); Anion Gap 8.5 mmol/L (3-11); BUN 16 mg/dL (7-18); Bilirubin, Total 0.5 mg/dL (0.2-1.0); CO2 25.5 mmol/L (21.0-32.0); CREATININE 0.9 mg/dL (0.55-1.02); Calcium 8.9 mg/dL (8.5-10.1); Calculated LDL 107 mg/dL (<100); Chloride 101 mmol/L (98-107); Cholesterol 194 mg/dL (<200); Estimated GFR 63.83 (mL/min/1.73m2); Glucose 89 mg/dL (74-106); HDL Cholesterol 82 mg/dL (>or=50); Potassium 4.6 mmol/L (3.5-5.1); Sodium 135 mmol/L (136-145); Total Protein 7.2 g/dL (6.4-8.2); Triglyceride 25 mg/dL (<150)
== END 2025-04-02 01:16 | disposition home or self-care (01) ==
LOC: LOS 01:15
PROVIDERS: PCP Nurse Practitioner Family; Visit Provider Nurse Practitioner Family
DX: N18.30 Chronic kidney disease, stage 3 unspecified (principal); E78.5 Hyperlipidemia, unspecified; F33.9 Major depressive disorder, recurrent, unspecified; M85.80 Other specified disorders of bone density and structure, unspecified site; G25.81 Restless legs syndrome; J45.909 Unspecified asthma, uncomplicated
CPT/HCPCS: 36415; 80053; 80061